=== PATIENT | female | born 1970 | race Caucasian/White ===

== ENCOUNTER 2018-03-23 12:31 | Emergency (ER) | payer OTHER ==
[~2018-03-23] VITALS: Ht 172.7 cm; Wt 59.9 kg
== END 2018-03-23 17:16 | disposition home or self-care (01) ==
LOC: ER 12:31
DX: K40.90 Unilateral inguinal hernia, without obstruction or gangrene, not specified as recurrent (principal)
CPT/HCPCS: 76857; 83605; 99284-25

== ENCOUNTER 2018-03-31 07:34 | Day surgery (SDC) | payer OTHER ==
[~2018-03-31] VITALS: Ht 170.2 cm; Wt 60.3 kg
[~2018-03-31 07:34] MED LIST: CALCIUM PO; CHOL10002 PO; FISH OIL 1,0001 EAC1 PO; Hair, Skin & N1 EACH PO; VALCYCLOVIR PO
== END 2018-03-31 22:44 | disposition home or self-care (01) ==
LOC: ORSCMMR 07:34 → ORD 09:00 → ORSCMMR 22:44
PROVIDERS: Surgery
PROC: 0YU60JZ Supplement Left Inguinal Region with Synthetic Substitute, Open Approach (ICD-10-PCS; principal; 2018-03-31 09:00)
DX: K40.30 Unilateral inguinal hernia, with obstruction, without gangrene, not specified as recurrent (principal)
CPT/HCPCS: C1781; J0690; J2250; J2405; J3010; J7120

== ENCOUNTER 2018-09-28 12:45 | Day surgery (SDC) | payer OTHER ==
[~2018-09-28] VITALS: Ht 172.7 cm; Wt 61.8 kg
--- NOTE | 2018-09-28 13:21 | NUR ---
09/28/18 1321 Kaitlin Spence FIRST IV UNSUCCESS IN R HAND SECOND IV SUCCESS IN R AC
[2018-09-28] MEDS ORDERED: Omeprazole20 M1 (13:23)
== END 2018-09-28 15:10 | disposition home or self-care (01) ==
LOC: ORSCSDS 12:45
PROVIDERS: Student in an Organized Health Care Education/Training Program
PROC: 0DB98ZX Excision of Duodenum, Via Natural or Artificial Opening Endoscopic, Diagnostic (ICD-10-PCS; principal; 2018-09-28 14:00)
PROC: 0DB68ZX Excision of Stomach, Via Natural or Artificial Opening Endoscopic, Diagnostic (ICD-10-PCS; principal; 2018-09-28 14:00)
PROC: 0DB58ZX Excision of Esophagus, Via Natural or Artificial Opening Endoscopic, Diagnostic (ICD-10-PCS; principal; 2018-09-28 14:00)
DX: R10.12 Left upper quadrant pain (principal); K44.9 Diaphragmatic hernia without obstruction or gangrene; R10.13 Epigastric pain; K21.9 Gastro-esophageal reflux disease without esophagitis; K29.70 Gastritis, unspecified, without bleeding; F41.9 Anxiety disorder, unspecified; Z79.899 Other long term (current) drug therapy
CPT/HCPCS: 88305; 88342

== ENCOUNTER 2018-11-08 10:28 | Emergency (ER) | payer OTHER ==
[~2018-11-08] VITALS: Ht 172.7 cm; Wt 60.8 kg
[~2018-11-08 10:28] MED LIST changes: +Omeprazole20 M1
[2018-11-08 11:24] LABS: BASOPHILS ABSOLUTE AUTO 0.04 K/mm3 (0.00-0.23); BASOPHILS PERCENT AUTO 1 % (0-2); EOSINOPHILS ABSOLUTE AUTO 0.04 K/mm3 (0.00-0.68); EOSINOPHILS PERCENT AUTO 1 % (0-6); Hematocrit 45.4 % (33.0-51.0); Hemoglobin 15.2 g/dL (11.5-16.0); IMMATURE GRAN ABSOLUTE AUTO 0.01 K/mm3 (0.00-0.10); IMMATURE GRAN PERCENT AUTO 0 % (0-1); LYMPHOCYTES ABSOLUTE AUTO 1.89 K/mm3 (0.84-5.20); LYMPHOCYTES PERCENT AUTO 22 % (21-46); MONOCYTES ABSOLUTE AUTO 0.84 K/mm3 (0.16-1.47); MONOCYTES PERCENT AUTO 10 % (4-13); Mean Corpuscular HGB 31.5 pg (26.0-34.0); Mean Corpuscular HGB Conc 33.5 g/dL (31.5-36.5); Mean Corpuscular Volume 94 fL (80-100); Mean Platelet Volume 10.1 fL (9.1-12.4); NEUTROPHILS ABSOLUTE AUTO 5.85 K/mm3 (1.96-9.15); NEUTROPHILS PERCENT AUTO 67 % (41-73); Platelet Count 275 K/mm3 (150-400); RDW Standard Deviation 41.6 fL (35.1-46.3); Red Blood Cell Count 4.83 M/mm3 (3.80-5.20); White Blood Cell Count 8.67 K/mm3 (4.00-11.30)
[2018-11-08 11:24] LABS: Source, Urine Clean Catch
[2018-11-08 11:27] LABS: Bilirubin, Urine Neg (Neg); Blood, Urine 3+ (Neg); Glucose Qualitative, Urine Neg (Neg); Ketones, Urine Neg (Neg); Leukocyte Esterase, Urine Neg (Neg); Nitrite, Urine Neg (Neg); Protein, Urine Neg (Neg); Urobilinogen, Urine NORM (Normal)
[2018-11-08 11:34] LABS: Appearance, Urine Clear (Clear); Color, Urine Yellow (P-Yellow)
[2018-11-08 11:35] LABS: Bacteria Not Seen /hpf; Squamous Epithelial Cells Rare /hpf (Few); White Blood Cells, Urine Not Seen /hpf (0-5)
[2018-11-08 11:40] LABS: Alanine Aminotransfer (ALT/SGP 24 U/L (12-78); Albumin, Blood 4.1 g/dL (3.4-5.0); Albumin/Globulin Ratio 1.1 (0.8-1.8); Alk Phos 96 U/L (50-136); Anion Gap 6 mmol/L (6-16); Aspartate Aminotrans (AST/SGOT 27 U/L (12-37); Bilirubin, Total 0.5 mg/dL (0.1-1.0); Blood Urea Nitrogen 13 mg/dL (8-24); CO2, Blood 30 mmol/L (21-32); Chloride, Blood 107 mmol/L (98-108); Creatinine, Blood 0.76 mg/dL (0.40-1.00); Globulin, Blood 3.7 g/dL (2.2-4.0); Glomerular Filtration Rate >60 (60-); Glucose, Blood 83 mg/dL (70-99); Sodium, Blood 143 mmol/L (136-145); Total Protein, Blood 7.8 g/dL (6.4-8.2)
[2018-11-08] MEDS ORDERED: Norco 5-325 Ta1 EACH PO (16:38)
== END 2018-11-08 16:45 | disposition home or self-care (01) ==
LOC: ER 10:28
PROVIDERS: Physician Assistant
DX: K59.00 Constipation, unspecified (principal); K21.9 Gastro-esophageal reflux disease without esophagitis; F41.9 Anxiety disorder, unspecified; Z79.899 Other long term (current) drug therapy
CPT/HCPCS: 36415; 74177; 76830; 76856; 80053; 81001; 83690; 84703; 85025; 99284-25; Q9967

== ENCOUNTER 2018-12-11 19:27 | Inpatient (IN) | payer BC ==
[~2018-12-11] VITALS: Ht 172.7 cm; Wt 61.2 kg
[~2018-12-11 19:27] MED LIST changes: +Norco 5-325 Ta1 EACH PO
[2018-12-11 20:05] LABS: BASOPHILS ABSOLUTE AUTO 0.05 K/mm3 (0.00-0.23); BASOPHILS PERCENT AUTO 1 % (0-2); EOSINOPHILS ABSOLUTE AUTO 0.07 K/mm3 (0.00-0.68); EOSINOPHILS PERCENT AUTO 1 % (0-6); Hematocrit 39.3 % (33.0-51.0); Hemoglobin 13.2 g/dL (11.5-16.0); IMMATURE GRAN ABSOLUTE AUTO 0.02 K/mm3 (0.00-0.10); IMMATURE GRAN PERCENT AUTO 0 % (0-1); LYMPHOCYTES ABSOLUTE AUTO 3.09 K/mm3 (0.84-5.20); LYMPHOCYTES PERCENT AUTO 37 % (21-46); MONOCYTES ABSOLUTE AUTO 0.89 K/mm3 (0.16-1.47); MONOCYTES PERCENT AUTO 11 % (4-13); Mean Corpuscular HGB 31.4 pg (26.0-34.0); Mean Corpuscular HGB Conc 33.6 g/dL (31.5-36.5); Mean Corpuscular Volume 93 fL (80-100); Mean Platelet Volume 10.2 fL (9.1-12.4); NEUTROPHILS ABSOLUTE AUTO 4.18 K/mm3 (1.96-9.15); NEUTROPHILS PERCENT AUTO 51 % (41-73); Platelet Count 242 K/mm3 (150-400); RDW Coefficient Variation 12.2 % (11.7-14.2); RDW Standard Deviation 41.8 fL (35.1-46.3); Red Blood Cell Count 4.21 M/mm3 (3.80-5.20)
[2018-12-11 20:24] LABS: Alanine Aminotransfer (ALT/SGP 31 U/L (12-78); Albumin, Blood 3.8 g/dL (3.4-5.0); Albumin/Globulin Ratio 1.3 (0.8-1.8); Alk Phos 101 U/L (50-136); Anion Gap 3 mmol/L (6-16); Aspartate Aminotrans (AST/SGOT 25 U/L (12-37); Bilirubin, Total 0.4 mg/dL (0.1-1.0); Blood Urea Nitrogen 11 mg/dL (8-24); Bun/Creatinine Ratio 16.3 (12.0-20.0); CO2, Blood 29 mmol/L (21-32); Calcium, Blood 8.5 mg/dL (8.5-10.1); Chloride, Blood 105 mmol/L (98-108); Creatinine, Blood 0.68 mg/dL (0.40-1.00); Glomerular Filtration Rate >60 (60-); Glucose, Blood 99 mg/dL (70-99); Potassium, Blood 3.3 mmol/L (3.5-5.5); Sodium, Blood 137 mmol/L (136-145); Total Protein, Blood 6.8 g/dL (6.4-8.2)
[2018-12-11 20:25] LABS: Source, Urine Clean Catch
[2018-12-11 20:35] LABS: Bilirubin, Urine Neg (Neg); Blood, Urine 2+ (Neg); Glucose Qualitative, Urine Neg (Neg); Ketones, Urine Neg (Neg); Leukocyte Esterase, Urine Neg (Neg); Nitrite, Urine Neg (Neg); Protein, Urine Neg (Neg); Specific Gravity, Urine 1.005 (1.003-1.022); Urobilinogen, Urine NORM (Normal)
[2018-12-11 20:39] LABS: Appearance, Urine Clear (Clear); Color, Urine Yellow (P-Yellow)
[2018-12-11 20:44] LABS: Bacteria Mod /hpf; Squamous Epithelial Cells Few /hpf (Few); White Blood Cells, Urine 0-2 /hpf (0-5)
[2018-12-12] MEDS ORDERED: OMEPRAZOLE20 MG PO (01:19)
[2018-12-12] MEDS ORDERED: VALA500 PO (01:19)
--- NOTE | 2018-12-12 06:23 | NUR ---
SHIFT SUMMARY NO ACUTE CHANGES SINCE ADMISSION TO THE FLOOR. RESP UNLABORED, VSS. PAIN MANAGED WITH 25 MCG IV FENTANYL. MILD NAUSEA, NO VOMITING NOTED. PT IS PASSING FLATUS, VOIDING WNL. NPO SINCE ADMISSION. FLUIDS INFUSING PER EMAR. INDEPENDENT IN ROOM. CALL LIGHT IN REACH
--- NOTE | 2018-12-12 17:20 | NUR ---
SHIFT SUMMARY PT HAS DENIED PAIN THIS SHIFT. SHE HAS PASSED STOOL. PT IS TOLERATING A CLEAR LIQUID DIET. PLAN FOR COLONOSCOPY TOMORROW WITH DR. LÓPEZ. VSS. WILL CONTINUE TO MONITOR.
--- NOTE | 2018-12-13 05:40 | NUR ---
SHIFT SUMMARY PT ADMITTED FOR ABD PAIN. SCHEDULED FOR COLONSCOPY TODAY, COMPLETED PREP OVERNIGHT WITH PANCHO ZAMORA MAINTENENCE FLUIDS INFUSING. PT HAS NOT HAD ANY SHARP ABD PAIN SINCE HER BM FOLLOWING THE CT SCAN, HER ONLY COMPLAINTS OF PAIN WAS SLIGHT CRAMPING RELATED TO THE FREQUENT BMS WITH THE BOWEL PREP. PT IS A&O, ABLE TO MAKE NEEDS KNOWN. INDEP IN THE ROOM. WILL CTM UNTIL PASS TO NEXT SHIFT.
--- NOTE | 2018-12-13 07:46 | NUR ---
PATIENT REPORTS HER STOOL IS CLEAR YELLOW. NO NAUSEA REPORTED. NPO FOR COLONOSCOPY THIS AM. MILD ABD TENDERNESS.
--- NOTE | 2018-12-13 09:45 | NUR ---
PT TRANSPORTED TO DAY SURG [facility]IA [facility] FOR COLONOSCOPY
--- NOTE | 2018-12-13 10:42 | NUR ---
12/13/18 1042 Kulwant Rosenberg History, Chart, Medications and Allergies reviewed before start of procedure.MONITOR INTACT WITH CONTINUOUS PULSE OXIMETRY AND INTERMITTENT BP.3-LEAD EKG REVIEWED WITH PHYSICIAN PRIOR TO START OF PROCEDURE.O2 VIA N/C INTACT THROUGHOUT SEDATION/PROCEDURE. Patient confirms NPO status and agrees with scheduled surgery.PATIENT DETERMINED TO BE ASA APPROPRIATE FOR PROPOFOL SEDATION PRIOR TO START OF PROCEDURE BY DR. LÓPEZ.
[2018-12-13] MEDS ORDERED: DOC250 PO (14:07)
--- NOTE | 2018-12-13 14:34 | NUR ---
discharge instructions reviewed with pt verbalized no rx pt getting dressed no acute changes
== END 2018-12-13 14:50 | disposition home or self-care (01) | DRG 392 ==
LOC: ER 19:27 → SURS 19:28 → ER 19:28 → SURS 12-12 02:51
PROVIDERS: Emergency Medicine; Internal Medicine Gastroenterology; ADMIT Surgery
PROC: 0DBN8ZX Excision of Sigmoid Colon, Via Natural or Artificial Opening Endoscopic, Diagnostic (ICD-10-PCS; principal; 2018-12-13 09:00)
DX: K59.09 Other constipation (principal); K21.9 Gastro-esophageal reflux disease without esophagitis; F41.9 Anxiety disorder, unspecified; K63.5 Polyp of colon; K63.89 Other specified diseases of intestine; K64.8 Other hemorrhoids; Z88.5 Allergy status to narcotic agent; Z79.899 Other long term (current) drug therapy
CPT/HCPCS: 36415; 74177; 76857; 80053; 81001; 81025; 85025; 87086; 88305; 96365-59; 96375; 99285-25; J0694; J1980; J2250; J2405; J2704; J3010; J7030; J7120; Q9963; Q9967

== ENCOUNTER → 2019-12-13 | Outpatient (CLI) | payer BC ==
[~2019-12-13] MED LIST changes: +DOC250 PO; +OMEPRAZOLE20 MG PO; +VALA500 PO
== END | disposition home or self-care (01) ==
LOC: LAB SHORT 10:44 → PLD 10:44
DX: D48.5 Neoplasm of uncertain behavior of skin (principal)
CPT/HCPCS: 88305